=== PATIENT | female | born 1940 | race Caucasian/White ===

== ENCOUNTER 2019-03-29 13:41 | Emergency (ER) | payer OTHER ==
--- NOTE | 2019-03-29 14:13 | ED Physician Documentation ---
General Adult - HISTORIAN Historian: patient - HPI Stated Complaint: Ankle pain Chief Complaint: General Adult Onset: other (3 weeks) Timing: still present Severity: mild Further Comments: yes (Pt is a 78 yo female with c/o L foot/ankle pain. Pt states that she gets foot swelling when she has been on her feet all day. Pt has had knee problems and sees an orthopedic doctor for this.) - ROS CONST: no problems EYES/ENT: none CVS/RESP: none GI/: none MS/SKIN/LYMPH: other (foot pain with prolonged standing) - PAST HX Past History: hypertension Allergies/Adverse Reactions: Allergies Allergy/AdvReac Type Severity Reaction Status Date / Time No Known Allergies Allergy Verified 03/29/19 14:01 Home Medications: Ambulatory Orders Medication Instructions Recorded Candesartan Cilexetil [Atacand] 32 mg PO BID 03/29/19 Carvedilol [Coreg] 25 mg PO BID 03/29/19 Tizanidine HCl [Zanaflex] 2 mg PO TID PRN 03/29/19 - SOCIAL HX Smoking History: non-smoker - FAMILY HX Family History: No - VITAL SIGNS Vital Signs: Vital Signs Temp Pulse Resp BP Pulse Ox 83 16 189/79 99 03/29/19 13:58 03/29/19 13:58 03/29/19 13:58 03/29/19 13:58 - REVIEWED ASSESSMENTS Nursing Assessment Reviewed: Yes Vitals Reviewed: Yes Progress - Progress Progress: Pt has no swelling in L foot or ankle. FROM, good DP and PT pulses. Pt may have stressed her ankle because of knee problem and changed her gait. Pt requests info re: orthopedic doctors in area, as she needs a new doctor to manage her recurrent L knee problem. Orthopedic doctors in area. [facility] Tel. [phone]. Ask for Orthopedic Clinic. [facility]. . General Adult Physical Exam - PHYSICAL EXAM GENERAL APPEARANCE: no distress NECK: normal inspection, supple RESPIRATORY: no resp distress, chest non-tender, breath sounds normal CVS: reg rate & rhythm, heart sounds normal ABDOMEN: soft BACK: normal inspection, no CVA tenderness SKIN: warm/dry, normal color EXTREMITIES: non-tender, normal range of motion, no evidence of injury NEURO: oriented X3, motor nml, sensation nml Discharge Clincal Impression: c/o L foot pain Referrals: Primary Doctor,No [Primary Care Provider] - Condition: Good Disposition: 01 HOME, SELF-CARE Decision to Admit: NO Decision Time: 14:30
[2019-03-29 14:40] VITALS: BP 173/74
== END 2019-03-29 14:25 | disposition home or self-care (01) ==
LOC: ED 13:41
DX: M79.672 Pain in left foot (principal)
CPT/HCPCS: 99281; 99282